=== PATIENT | female | born 1990 | race Caucasian/White ===

== ENCOUNTER 2017-11-03 18:34 | Emergency (ER) | payer BC ==
[2017-11-03] MEDS ORDERED: Famotidine IV* 10 MG/ML 2 ML (20 mg) IV SLOW PU ONE (19:56)
[2017-11-03 20:55] LABS: ABS Basophils 0 10^3/ul (0-0.2); ABS Eosinophils 0 10^3/ul (0-0.6); ABS Lymphocytes 2.7 10^3/ul (1.0-4.8); ABS Monocytes 0.7 10^3/ul (0-0.8); ABS Neutrophils 6.4 10^3/ul (1.5-7.7); ABS Nucleated RBC 0 10^3/ul; Eosinophil % 0.2 % (0-6); Hematocrit 41 % (35-47); Lymphocyte % 27.9 % (25-47); Mean Corpuscular HGB Conc 34 g/dl (31-36); Mean Corpuscular Hemoglobin 27 pg (27-31); Mean Corpuscular Volume 80 fL (80-97); Mean Platelet Volume 7.1 um3 (7.4-10.4); Nucleated Red Blood Cells % 0.1; Platelet Count 309 10^3/ul (150-450); Red Blood Count 5.11 10^6/ul (4.00-5.40); Red Cell Distribution Width 14 % (10.5-15); White Blood Count 9.8 10^3/ul (3.5-10.8)
[2017-11-03 21:10] LABS: EGFR Non-African American 73.8 (>60)
[2017-11-03 21:30] VITALS: BP 125/78
[2017-11-03 21:40] LABS: Urine Appearance Clear; Urine Blood Negative (Negative); Urine Color Yellow; Urine Ketones Negative (Negative); Urine Protein Negative (Negative); Urine Specific Gravity 1.025 (1.010-1.030); Urine Urobilinogen Negative (Negative)
--- NOTE | 2017-11-04 04:09 | ED ---
Gualberto Finn Tariq, scribed for John Danielle MD on 11/03/17 at 2100 . Allergic Reaction/Systemic - HPI Summary HPI Summary: A 27 y/o female pt presents to the ED c/o diffuse hives. Pt was referred to ED for diffuse hives and low kidney functioning. Pt states that hives went down 3 weeks ago temporarily. She denies any blood in urine, however she has had diarrhea since (4 days). Additionally, she felt dizzy. She has no problems walking. Current medications include Naye (6 per day), hydroxyzine, levothyroxine and montelukast. PMHx of Cherelle's disease. - History of Current Complaint Chief Complaint: EDGeneral Time Seen by Provider: 11/03/17 19:56 Hx Obtained From: Patient Onset/Duration: Gradual Onset, Started weeks ago, Still Present Timing: Intermittent Severity Initially: Mild Severity Currently: Mild Pain Intensity: 2 Pain Scale Used: 0-10 Numeric Character: Hives Aggravating Factor(s): Nothing Alleviating Factor(s): OTC Meds Associated Signs And Symptoms: Positive: Other: - diarrhea - Allergies/Home Medications Allergies/Adverse Reactions: Allergies Allergy/AdvReac Type Severity Reaction Status Date / Time No Known Allergies Allergy Verified 11/03/17 18:39 Home Medications: Home Medications Etonogestrel [Nexplanon] 68 mg IMPLANT DAILY 11/03/17 [History Confirmed ] Fexofenadine (NF) [Naye 180 (NF)] 360 mg PO TID 11/03/17 [History Confirmed 11/03/17] Hydroxychloroquine TAB* [Plaquenil TAB*] 400 mg PO DAILY 11/03/17 [History Confirmed 11/03/17] Levothyroxine TAB* [Synthroid TAB*] 75 mcg PO DAILY 11/03/17 [History Confirmed 11/03/17] Montelukast Sodium TAB* [Singulair TAB*] 10 mg PO DAILY 11/03/17 [History Confirmed 11/03/17] Omeprazole CAP* [Prilosec CAP* 20 MG] 20 mg PO DAILY 11/03/17 [History Confirmed 11/03/17] hydrOXYzine HCL TAB* [Atarax TAB 50 MG *] 50 mg PO BID 11/03/17 [History Confirmed 11/03/17] PMH/Surg Hx/FS Hx/Imm Hx Endocrine/Hematology History: Denies: Hx Diabetes Cardiovascular History: Denies: Hx Hypertension Infectious Disease History: No Infectious Disease History: Denies: Traveled Outside the [place] in Last 30 Days - Family History Known Family History: Negative: Diabetes - Social History Alcohol Use: Rare Substance Use Type: Reports: None Smoking Status (MU): Never Smoked Tobacco Review of Systems Negative: Fever Positive: Diarrhea Negative: dysuria Positive: Other - Hives Neurological: Other - Dizziness All Other Systems Reviewed And Are Negative: Yes Physical Exam - Summary Physical Exam Summary: Appearance: Morbidly obese. Skin: Lightly, scattered slight urticaria across skin Head/face: normal Eyes: EOMI, ANDREW ENT: normal. No lesions in mouth. Neck: supple, non-tender Respiratory: CTA, breath sounds present Cardiovascular: RRR, pulses symmetrical Abdomen: non-tender, soft Bowel Sounds: present Musculoskeletal: normal, strength/ROM intact Neuro: normal, sensory motor intact, A&Ox3 Triage Information Reviewed: Yes Vital Signs On Initial Exam: Initial Vitals Temp Pulse Resp BP Pulse Ox 97.9 F 128 18 126/93 98 11/03/17 18:36 11/03/17 18:36 11/03/17 18:36 11/03/17 18:36 11/03/17 18:36 Vital Signs Reviewed: Yes Diagnostics - Vital Signs Vital Signs Temp Pulse Resp BP Pulse Ox 11/03/17 18:36 97.9 F 128 18 126/93 98 - Laboratory Lab Results: Lab Results 11/03/17 11/03/17 11/03/17 Range/Units 20:42 20:42 21:11 WBC 9.8 (3.5-10.8) 10^3/ul RBC 5.11 (4.00-5.40) 10^6/ul Hgb 14.0 (12.0-16.0) g/dl Hct 41 (35-47) % MCV 80 (80-97) fL MCH 27 (27-31) pg MCHC 34 (31-36) g/dl RDW 14 (10.5-15) % Plt Count 309 (150-450) 10^3/ul MPV 7.1 L (7.4-10.4) um3 Neut % (Auto) 64.9 (38-83) % Lymph % (Auto) 27.9 (25-47) % [place] % (Auto) 6.7 (0-7) % Eos % (Auto) 0.2 (0-6) % Baso % (Auto) 0.3 (0-2) % Absolute Neuts (auto) 6.4 (1.5-7.7) 10^3/ul Absolute Lymphs (auto) 2.7 (1.0-4.8) 10^3/ul Absolute Monos (auto) 0.7 (0-0.8) 10^3/ul Absolute Eos (auto) 0 (0-0.6) 10^3/ul Absolute Basos (auto) 0 (0-0.2) 10^3/ul Absolute Nucleated RBC 0 10^3/ul Nucleated RBC % 0.1 Sodium 137 (135-145) mmol/L Potassium 3.7 (3.5-5.0) mmol/L Chloride 106 (101-111) mmol/L Carbon Dioxide 23 (22-32) mmol/L Anion Gap 8 (2-11) mmol/L BUN 13 (6-24) mg/dL Creatinine 0.92 (0.51-0.95) mg/dL Est GFR ( Amer) 94.9 (>60) Est GFR (Non-Af Amer) 73.8 (>60) BUN/Creatinine Ratio 14.1 (8-20) Glucose 92 (70-100) mg/dL Calcium 9.2 (8.6-10.3) mg/dL Total Bilirubin 0.40 (0.2-1.0) mg/dL AST 16 (13-39) U/L ALT 17 (7-52) U/L Alkaline Phosphatase 53 (34-104) U/L Total Protein 6.5 (6.4-8.9) g/dL Albumin 3.7 (3.2-5.2) g/dL Globulin 2.8 (2-4) g/dL Albumin/Globulin Ratio 1.3 (1-3) Urine Color Yellow Urine Appearance Clear Urine pH 5.0 (5-9) Ur Specific [place] 1.025 (1.010-1.030) Urine Protein Negative (Negative) Urine Ketones Negative (Negative) Urine Blood Negative (Negative) Urine Nitrate Negative (Negative) Urine Bilirubin Negative (Negative) Urine Urobilinogen Negative (Negative) Ur Leukocyte Esterase Negative (Negative) Urine Glucose Negative (Negative) Result Diagrams: 11/03/17 20:42 11/03/17 20:42 Lab Statement: Any lab studies that have been ordered have been reviewed, and results considered in the medical decision making process. 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 She was sent here to check renal function given she was on new medication. Patient has normal renal function and no proteinuria or other abnormality of the urinalysis. She was given IV Pepcid with very little change. She was discharging good condition. - Diagnoses Provider Diagnoses: Urticarial vasculitis Discharge - Sign-Out/Discharge Documenting (check all that apply): Discharge/Admit/Transfer - Discharge - Discharge Plan Condition: Improved Disposition: HOME Patient Education Materials: Urticaria (ED), Connective Tissue Disorders (ED) Referrals: Luke Reeder MD [Primary Care Provider] - Additional Instructions: Normal renal function. Follow-up with your liquid chlorine operator. Return if worse, new symptoms or other concerns. - Billing Disposition and Condition Condition: IMPROVED Disposition: Home The documentation as recorded by the Gualberto newton Tariq accurately reflects the service I personally performed and the decisions made by me, John Danielle MD.
== END 2017-11-03 21:33 | disposition home or self-care (01) ==
LOC: ED 18:34
DX: L95.8 Other vasculitis limited to the skin (principal); R42 Dizziness and giddiness; R19.7 Diarrhea, unspecified; E06.3 Autoimmune thyroiditis
CPT/HCPCS: 36415; 80053; 81003; 85025; 96374; 99283

== ENCOUNTER 2021-10-29 18:16 | Inpatient (IN) ==
[2021-10-29] MEDS ORDERED: Lactated Ringers 1000 ml BAG 1,000 ML IV ONE (19:12)
[2021-10-29 21:01] LABS: Hematocrit 37 % (35-47); Hemoglobin 11.8 g/dL (12.0-16.0); Mean Corpuscular HGB Conc 32 g/dL (31-36); Mean Corpuscular Hemoglobin 27 pg (27-31); Mean Corpuscular Volume 82 fL (80-97); Mean Platelet Volume 7.1 fL (7.4-10.4); Platelet Count 272 10^3/uL (150-450); Red Blood Count 4.43 10^6 /uL (3.70-4.87); Red Cell Distribution Width 17 % (10-15)
[2021-10-29 21:09] LABS: Nucleated Red Blood Cells % 0.3
[2021-10-29 21:10] LABS: Activated Partial Thrombo Time 33.5 seconds (26.0-38.0); INR 1.12 (0.86-1.15)
[2021-10-29 21:26] LABS: C Reactive Protein 98.17 mg/L (<8.01); Calcium 9.4 mg/dL (8.6-10.3); Potassium 3.9 mmol/L (3.5-5.0); Total Bilirubin 1.1 mg/dL (0.2-1.0); eGFR CKD-EPI 97.2 (>60)
[2021-10-29] MEDS ORDERED: Piperacillin/Tazobac ADVAN 3.375 GM in NS 0.9% 100 ml BAG 100 ML IV ONE (21:48)
[2021-10-29] MEDS ORDERED: Zosyn per Pharmacy NOTE FOLLOW UP SCH (22:00)
[2021-10-30] MEDS ORDERED: Ondansetron 4 mg VIAL 2 MG/ML 2 ml VIAL IV PRN (00:38)
[2021-10-30 00:41] LABS: Urine Appearance Clear; Urine Bilirubin Negative (Negative); Urine Blood Negative (Negative); Urine Color Yellow; Urine Glucose Negative (Negative); Urine Ketones Trace (Negative); Urine Nitrite Negative (Negative); Urine Protein Negative (Negative); Urine Specific Gravity 1.006 (1.002-1.030); Urine Urobilinogen Negative (Negative)
[2021-10-30] MEDS ORDERED: ZOSYN 3.375 GM Q8H per EXTENDED INFUSION IV SCH ×2 (02:00→02:30)
[2021-10-30] MEDS ORDERED: Zosyn per Pharmacy NOTE FOLLOW UP PRN (02:02)
[2021-10-30] MEDS ORDERED: Lactated Ringers 1000 ml BAG 1,000 ML IV SCH (05:00)
[2021-10-30 06:01] LABS: Hematocrit 34 % (35-47); Hemoglobin 10.9 g/dL (12.0-16.0); Mean Corpuscular HGB Conc 32 g/dL (31-36); Mean Corpuscular Hemoglobin 27 pg (27-31); Mean Corpuscular Volume 83 fL (80-97); Mean Platelet Volume 7.5 fL (7.4-10.4); Platelet Count 287 10^3/uL (150-450); Red Blood Count 4.07 10^6 /uL (3.70-4.87); Red Cell Distribution Width 17 % (10-15); White Blood Count 1.2 10^3/uL (3.5-10.8)
[2021-10-30 06:25] LABS: Albumin 3.8 g/dL (3.2-5.2); Globulin 1.9 g/dL (2-4); Potassium 3.8 mmol/L (3.5-5.0); Total Bilirubin 1.2 mg/dL (0.2-1.0); Total Protein 5.7 g/dL (6.4-8.9); eGFR CKD-EPI 97.2 (>60)
[2021-10-30 07:51] LABS: ABS Lymphocytes 1.2 10^3/ul (1.0-4.8); Eosinophil % 0.2 %; Lymphocyte % 98.3 %; Nucleated Red Blood Cells % 0.4
[2021-10-31 06:03] LABS: Hematocrit 36 % (35-47); Hemoglobin 11.7 g/dL (12.0-16.0); Mean Corpuscular HGB Conc 33 g/dL (31-36); Mean Corpuscular Hemoglobin 27 pg (27-31); Mean Corpuscular Volume 82 fL (80-97); Mean Platelet Volume 7.3 fL (7.4-10.4); Platelet Count 296 10^3/uL (150-450); Red Blood Count 4.32 10^6 /uL (3.70-4.87); Red Cell Distribution Width 17 % (10-15); White Blood Count 1.5 10^3/uL (3.5-10.8)
[2021-10-31 06:07] LABS: ABS Lymphocytes 1.4 10^3/ul (1.0-4.8); Lymphocyte % 97.8 %; Nucleated Red Blood Cells % 0.2
[2021-10-31 14:56] LABS: Urine Appearance Clear; Urine Bilirubin Negative (Negative); Urine Blood Negative (Negative); Urine Color Yellow; Urine Glucose Negative (Negative); Urine Ketones Trace (Negative); Urine Nitrite Negative (Negative); Urine Protein Negative (Negative); Urine Urobilinogen Negative (Negative)
[2021-10-31] MEDS ORDERED: ZOSYN 3.375 GM Q8H per EXTENDED INFUSION IV SCH (15:00)
[2021-10-31] MEDS ORDERED: Zosyn per Pharmacy NOTE FOLLOW UP SCH (15:00)
[2021-10-31] MEDS: ZOSYN 3.375 GM Q8H per EXTENDED INFUSION IV SCH (19:33)
[2021-11-01] MEDS: ZOSYN 3.375 GM Q8H per EXTENDED INFUSION IV SCH ×3 (03:59→19:42)
[2021-11-01 06:01] LABS: Hematocrit 34 % (35-47); Hemoglobin 11.2 g/dL (12.0-16.0); Mean Corpuscular HGB Conc 33 g/dL (31-36); Mean Corpuscular Hemoglobin 27 pg (27-31); Mean Corpuscular Volume 83 fL (80-97); Mean Platelet Volume 7.2 fL (7.4-10.4); Platelet Count 305 10^3/uL (150-450); Red Blood Count 4.08 10^6 /uL (3.70-4.87); Red Cell Distribution Width 17 % (10-15); White Blood Count 1.3 10^3/uL (3.5-10.8)
[2021-11-01 09:09] LABS: Anisocytosis 1+; Polychromasia 1+
[2021-11-01 09:13] LABS: ABS Lymphocytes 1.3 10^3/ul (1.0-4.8); Lymphocyte % 97.2 %; Nucleated Red Blood Cells % 0.2
[2021-11-02] MEDS: ZOSYN 3.375 GM Q8H per EXTENDED INFUSION IV SCH ×3 (03:35→19:55)
[2021-11-02 07:45] LABS: Hematocrit 34 % (35-47); Hemoglobin 11.1 g/dL (12.0-16.0); Mean Corpuscular HGB Conc 32 g/dL (31-36); Mean Corpuscular Hemoglobin 27 pg (27-31); Mean Corpuscular Volume 83 fL (80-97); Platelet Count 357 10^3/uL (150-450); Red Blood Count 4.15 10^6 /uL (3.70-4.87); Red Cell Distribution Width 17 % (10-15); White Blood Count 1.4 10^3/uL (3.5-10.8)
[2021-11-02 08:15] LABS: ABS Lymphocytes 1.3 10^3/ul (1.0-4.8); Eosinophil % 0.1 %; Lymphocyte % 97.5 %; Nucleated Red Blood Cells % 0.1
[2021-11-03] MEDS: ZOSYN 3.375 GM Q8H per EXTENDED INFUSION IV SCH ×3 (03:44→19:56)
[2021-11-03 07:20] LABS: Hematocrit 34 % (35-47); Mean Corpuscular HGB Conc 33 g/dL (31-36); Mean Corpuscular Hemoglobin 27 pg (27-31); Mean Corpuscular Volume 82 fL (80-97); Mean Platelet Volume 7.1 fL (7.4-10.4); Platelet Count 344 10^3/uL (150-450); Red Blood Count 4.09 10^6 /uL (3.70-4.87); Red Cell Distribution Width 17 % (10-15); White Blood Count 1.4 10^3/uL (3.5-10.8)
[2021-11-03 07:27] LABS: ABS Lymphocytes 1.3 10^3/ul (1.0-4.8); Lymphocyte % 95.4 %; Nucleated Red Blood Cells % 0.1
[2021-11-03 22:25] LABS: TSH Ultra Thyroid Stim Horm 3.27 mcIU/mL (0.34-5.60)
[2021-11-03 22:27] LABS: Free T4 1.32 ng/dL (0.61-1.12)
[2021-11-04] MEDS: ZOSYN 3.375 GM Q8H per EXTENDED INFUSION IV SCH ×3 (03:42→19:39)
[2021-11-04 06:17] LABS: Hematocrit 34 % (35-47); Hemoglobin 10.8 g/dL (12.0-16.0); Mean Corpuscular HGB Conc 32 g/dL (31-36); Mean Corpuscular Hemoglobin 26 pg (27-31); Mean Corpuscular Volume 81 fL (80-97); Mean Platelet Volume 7.2 fL (7.4-10.4); Platelet Count 353 10^3/uL (150-450); Red Blood Count 4.12 10^6 /uL (3.70-4.87); Red Cell Distribution Width 16 % (10-15); White Blood Count 1.5 10^3/uL (3.5-10.8)
[2021-11-04 06:35] LABS: ABS Lymphocytes 1.4 10^3/ul (1.0-4.8); ABS Monocytes 0.1 10^3/ul (0-0.8); Eosinophil % 0.1 %; Lymphocyte % 92.4 %; Nucleated Red Blood Cells % 0.3
[2021-11-04 07:10] LABS: Albumin 3.5 g/dL (3.2-5.2); Albumin/Globulin Ratio 1.6 (1-3); Calcium 8.7 mg/dL (8.6-10.3); Globulin 2.2 g/dL (2-4); Potassium 3.9 mmol/L (3.5-5.0); Total Bilirubin 0.6 mg/dL (0.2-1.0); Total Protein 5.7 g/dL (6.4-8.9); eGFR CKD-EPI 103.1 (>60)
[2021-11-04 11:06] LABS: Urine Appearance Clear; Urine Bilirubin Negative (Negative); Urine Blood Negative (Negative); Urine Color Straw; Urine Glucose Negative (Negative); Urine Ketones Negative (Negative); Urine Nitrite Negative (Negative); Urine Protein Negative (Negative); Urine Specific Gravity 1.004 (1.002-1.030); Urine Urobilinogen Negative (Negative)
[2021-11-04] MEDS ORDERED: Benzocaine/Menthol LOZ PO PRN (20:52)
[2021-11-05] MEDS: ZOSYN 3.375 GM Q8H per EXTENDED INFUSION IV SCH ×3 (03:48→19:05)
[2021-11-05 06:36] LABS: Hematocrit 33 % (35-47); Hemoglobin 10.9 g/dL (12.0-16.0); Mean Corpuscular HGB Conc 33 g/dL (31-36); Mean Corpuscular Hemoglobin 27 pg (27-31); Mean Corpuscular Volume 81 fL (80-97); Platelet Count 359 10^3/uL (150-450); Red Cell Distribution Width 17 % (10-15)
[2021-11-05 07:25] LABS: ABS Lymphocytes 1.5 10^3/ul (1.0-4.8); ABS Monocytes 0.2 10^3/ul (0-0.8); ABS Neutrophils 0.3 10^3/ul (1.5-7.7); Eosinophil % 0.2 %; Lymphocyte % 76.4 %; Nucleated Red Blood Cells % 0.8
[2021-11-05 17:26] LABS: CMV DNA DETECT/QT, P Undetected IU/mL (Undetected)
[2021-11-05 20:09] LABS: Parvovirus (B19) IgG Antibody Positive (Negative); Parvovirus (B19) IgM Antibody Negative (Negative)
[2021-11-06] MEDS: ZOSYN 3.375 GM Q8H per EXTENDED INFUSION IV SCH (03:33)
[2021-11-06 06:12] LABS: Hematocrit 34 % (35-47); Hemoglobin 11.1 g/dL (12.0-16.0); Mean Corpuscular HGB Conc 32 g/dL (31-36); Mean Corpuscular Hemoglobin 26 pg (27-31); Mean Corpuscular Volume 81 fL (80-97); Mean Platelet Volume 7.1 fL (7.4-10.4); Platelet Count 390 10^3/uL (150-450); Red Blood Count 4.25 10^6 /uL (3.70-4.87); Red Cell Distribution Width 17 % (10-15)
[2021-11-06 08:17] LABS: Basophilic Stippling 1+; Polychromasia 1+
[2021-11-06 08:18] LABS: Anisocytosis 1+; Platelet Morphology Large
[2021-11-06 08:21] LABS: ABS Neutrophils 0.6 10^3/ul (1.5-7.7)
[2021-11-06 08:34] VITALS: BP 129/63
== END 2021-11-06 11:24 | disposition home or self-care (01) | DRG 660 ==
LOC: ED 18:16 → EDHOLD 23:27 → SUATTDRO 23:27 → EDHOLD 10-30 00:36 → MEDTELE 10-30 01:19
PROVIDERS: ADMIT Internal Medicine; ATTEND Student in an Organized Health Care Education/Training Program